=== PATIENT | male | born 1955 | race Caucasian/White ===

== ENCOUNTER 2016-04-05 12:51 | Emergency (ER) | payer BC ==
[~2016-04-05] VITALS: Ht 175.3 cm; Wt 123.8 kg
[~2016-04-05 12:51] MED LIST: ATOR10 PO; CETI10 PO; COZA50TA PO; FURO80 PO; GLUCOMETER XX; GLUCOMTESTSTRIPS XX; INSU-174; KLOR20TA6 PO; LEVEMIR SQ; METO50TA11 PO; NOVOLOGSS SQ; PRIL40CA PO
[2016-04-05 12:54] VITALS: BP 113/72; PULSE 88; RESP 18; TEMP 98.8; O2SAT 97
[2016-04-05] MEDS ORDERED: OMEP40CA2 PO (13:10)
[2016-04-05] MEDS ORDERED: FENO160T PO (13:10)
[2016-04-05] MEDS ORDERED: FURO40TA PO (13:10)
[2016-04-05] MEDS ORDERED: LEVEMIR SQ ×2 (13:10)
[2016-04-05] MEDS ORDERED: LOSA100T PO (13:10)
[2016-04-05] MEDS ORDERED: METO50TA11 PO (13:10)
[2016-04-05] MEDS ORDERED: POTA-163 PO (13:10)
[2016-04-05] MEDS ORDERED: CLIN1CAP6 PO (13:12)
--- NOTE | 2016-04-05 13:12 | PD ---
HPI Chief Complaint: Burn Time Seen by Provider: 13:02 Travel History International Travel<30 days: No Contact w/Intl Traveler<30days: No Traveled to known affect area: No History of Present Illness HPI 61-year-old male with history of mantle cell lymphoma here with complaint of burn. Patient was eating pizza approximate 1 week ago when he burned the tip of his tongue and his right posterior pharynx. Over the course the last week patient has persistent pain within these areas. He notes 2 days of fever, MAXIMUM TEMPERATURE 101. Patient concerned given his history of lymphoma. No cough, cold, chest congestion. He notes right posterior pharyngeal pain since the burn. No abdominal pain, nausea vomiting or diarrhea. PFSH Past Medical History Cancer: Yes (MANTLE CELL LYMPHOMA) Cardiovascular Problems: Yes (htn) High Cholesterol: Yes Chemotherapy: Yes (lymphoma 2015) Chest Pain: Yes Diabetes: Yes (type 2) Diminished Hearing: No Endocrine: No GERD: Yes Genitourinary: No Hypertension: Yes Immune Disorder: No Musculoskeletal: No Neurologic: No Psychiatric: No Reproductive: No Respiratory: No Immunizations Current: Yes Thyroid Disease: No Past Surgical History Other Surgery: Yes (STEM CELL TRANSPLANT) Social History Alcohol Use: Yes (OCCASIONAL) Tobacco Use: No Substance Use: No Allergies-Medications (Allergen,Severity, Reaction): Coded Allergies: No Known Allergies (Verified , 09/19/15) Reported Meds & Prescriptions Reported Meds & Active Scripts Active Levemir Insulin (Insulin Detemir) 100 Units/Ml Inj 14 Units SQ BID Novolog Insulin Supplemental Scale (Insulin Aspart) 100 /Ml Inj 2-12 Units SQ TIDACHS Max dose at bedtime:( )units; sugars less than 70, (0)units; sugars 150-199, (2)units; sugars 200-249, (4)units; sugars 250-299,(7)units; sugars 300-349, (10)units; sugars greater than 349, (12)units B-D Insulin Syringe Ultra 31G X 5/16" 0.5 ml (Insulin Syringe/Needle U-100) 1 Mis Mis Box Glucometer Test Strips (Glucomteststrips) Box 1 Box XX Glucometer Kit 1 Kit XX Check blood sugar before meals and at bedtime Reported K-Dur (Potassium Chloride) 20 Meq Tabcr 20 Meq PO BID Lasix 80 Mg Tab (Furosemide) 80 Mg Tab 80 Mg PO DAILY Zyrtec 10 Mg Tab (Cetirizine HCl) 10 Mg Tab 10 Mg PO DAILY Cozaar (Losartan Potassium) 50 Mg Tab 50 Mg PO DAILY Prilosec 40 mg cap (Omeprazole) 40 Mg Cap 40 Mg PO DAILY Toprol XL (Metoprolol Succinate) 50 Mg Palomo 50 Mg PO DAILY Lipitor (Atorvastatin Calcium) 10 Mg Tab 10 Mg PO DAILY UNKNOWN DOSE Review of Systems Except as stated in HPI: all other systems reviewed are Neg Physical Exam Narrative GENERAL: Well-appearing male in no acute distress SKIN: Warm and dry. HEAD: Normocephalic. EYES: No scleral icterus. No injection or drainage. ENT: No nasal bleeding or discharge. Mucous membranes pink and moist. Erythematous region on the tip of the tongue, left greater than right. Small, 2 -3 mm, blistered region. The right posterior pharynx with mild erythema, no exudate, tonsillar swelling or blistered lesions. No eschar. Patient tolerate secretions without any difficulty NECK: Trachea midline. No JVD. Normal phonation CARDIOVASCULAR: No murmur appreciated. RESPIRATORY: No accessory muscle use. Clear to auscultation. Breath sounds equal bilaterally. GASTROINTESTINAL: Abdomen soft, non-tender, nondistended. Obese MUSCULOSKELETAL: Normal gait NEUROLOGICAL: Awake and alert. Motor grossly within normal limits. Normal speech. PSYCHIATRIC: Appropriate mood and affect; insight and judgment normal. 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 On exam he has a first and second-degree burn to the tip of the tongue and first-degree burn to the right posterior pharynx. She does not have any difficulty swallowing secretions. There is no significant erythema surrounding but given his fevers, and history of immunosuppression will cover with clindamycin for possible early oral pharyngeal bacteria. He does not have any other localizing symptoms of infection at this time and is well-appearing. I do not think he warrants laboratory workup. Narrative Course See above Diagnosis Primary Impression: Burn Additional Impression: First degree burn Referrals: Primary Care Physician as needed Additional Instructions: Finish antibiotics as prescribed. Follow-up with primary care provider as needed and return to the ER for the warning signs discussed. Med/Other Pt SpecificInfo: Prescription(s) given Scripts Clindamycin 300 Mg Cth226 Mg PO TID 7 Days Ref 0 Prov:Julia Martins MD 04/05/16 Disposition: 01 DISCHARGE HOME Condition: Stable Julia Martins MD Apr 05, 2016 13:12
== END 2016-04-05 13:23 | disposition home or self-care (01) ==
LOC: PHED 12:51
DX: T28.0XXA Burn of mouth and pharynx, initial encounter (principal); C83.10 Mantle cell lymphoma, unspecified site; X10.1XXA Contact with hot food, initial encounter
CPT/HCPCS: 99283